=== PATIENT | female | born 1940 | race Caucasian/White ===

== ENCOUNTER 2017-01-20 19:42 | Emergency (ER) | payer BC ==
[2017-01-20] MEDS ORDERED: ACETAMINOPHEN 500 MG TABLET PO ONE (20:06)
--- NOTE | 2017-01-20 20:11 | Emergency Department Record ---
History of Present Illness - General Chief Complaint: Difficulty Breathing Stated Complaint: LATONYA Time Seen by Provider: 01/20/17 20:05 Source: Patient Mode of Arrival: Wheelchair Limitations: No limitations - History of Present Illness Initial Comments: 76 yo female presents to ED with a CC of cough, congestion, and chest pain symptoms that began 1 hours ago associated with chills. Patient reports cough symptoms for the past 8 weeks, however reports that her symptoms worsened tonight. Patient also reports a history of PE "years ago", unknown cause, but does not take anticoagulation at home. MD Complaint: Chest pain, Cough Onset/Timin -: Hour(s) Severity: Mild Quality: Other Consistency: Constant Improves With: Nothing Worsens With: Nothing Known History Of: Other Associated Symptoms: Cough, Other Treatments Prior to Arrival: None - Related Data Home Medications Medication Instructions Recorded Confirmed Last Taken Acetaminophen [Mapap] 500 mg PO NOW PRN 01/20/17 01/20/17 Unknown Allopurinol [Zyloprim] 100 mg PO DAILY 01/20/17 01/20/17 Unknown Alpha Lipoic Acid 600 mg PO QHS 01/20/17 01/20/17 Unknown Bisacodyl [Dulcolax] 5 mg PO BID 01/20/17 01/20/17 Unknown Bumetanide [Bumex] 1 mg PO QID 01/20/17 01/20/17 Unknown Citalopram Hydrobromide 20 mg PO DAILY 01/20/17 01/20/17 Unknown [Citalopram HBr] Famotidine [Pepcid] 20 mg PO BID 01/20/17 01/20/17 Unknown Fluticasone/Salmeterol 100/50 1 disk IH ASDIR 01/20/17 01/20/17 Unknown [Advair 100/50] Ipratropium/Albuterol [Duoneb] 3 ml IH NOW 01/20/17 01/20/17 Unknown Metoprolol Succinate [Toprol Xl] 50 mg PO DAILY 01/20/17 01/20/17 Unknown Mirabegron [Myrbetriq] 25 mg PO DAILY 01/20/17 01/20/17 Unknown Montelukast Sodium [Singulair] 10 mg PO QHS 01/20/17 01/20/17 Unknown Multivitamin [Multi-Vitamin Daily] 1 each PO DAILY 01/20/17 01/20/17 Unknown Potassium Chloride [Klor-Con] 20 meq PO DAILY 01/20/17 01/20/17 Unknown Ropinirole HCl [Requip] 1 mg PO QPM 01/20/17 01/20/17 Unknown Ropinirole HCl [Requip] 2 mg PO QAM 01/20/17 01/20/17 Unknown Ropinirole HCl [Requip] 2 mg PO QHS 01/20/17 01/20/17 Unknown Temazepam [Restoril] 15 mg PO QHS 01/20/17 01/20/17 Unknown Tiotropium [place] [Spiriva] 18 mcg IH DAILY 01/20/17 01/20/17 Unknown Allergies Allergy/AdvReac Type Severity Reaction Status Date / Time codeine [CODEINE] Allergy Severe Difficulty Verified 10/17/16 10:56 in breathing, RASH azithromycin [From ZITHROMAX] Allergy Mild RASH Verified 10/17/16 10:56 losartan potassium Allergy Mild RASH Verified 10/17/16 10:56 [From Cozaar] Penicillins [PENICILLINS] Allergy Mild RASH Verified 10/17/16 10:56 piroxicam [From FELDENE] Allergy Mild RASH Verified 10/17/16 10:56 tramadol HCl [From Ultram] Allergy Mild RASH Verified 10/17/16 10:56 ibuprofen [From MOTRIN] AdvReac Mild irritates Verified 10/17/16 10:56 ulcers zolpidem tartrate AdvReac Mild sleep walk Verified 10/17/16 10:56 [From AMBIEN] aspirin AdvReac Unknown unknown Verified 10/17/16 10:56 Travel Screening - Travel/Exposure Within Last 30 Days Have you traveled within the last 30 days?: No - Travel/Exposure Within Last Year Have you traveled outside the [place] in the last year?: No - Additonal Travel Details Have you been exposed to anyone with a communicable illness?: No - Travel Symptoms Symptom Screening: None Review of Systems Constitutional: Reports: Chills. Denies: Malaise, Night sweats Eyes: Denies: Eye discharge, Eye pain ENT: Reports: Congestion. Denies: Ear pain, Epistaxis Respiratory: Reports: Cough. Denies: Dyspnea Cardiovascular: Reports: Chest pain. Denies: Dyspnea on exertion, Palpitations Endocrine: Denies: Fatigue, Heat or cold intolerance Gastrointestinal: Denies: Abdominal pain, Nausea, Vomiting Genitourinary: Denies: Dysuria, Frequency Musculoskeletal: Denies: Arthralgia, Back pain, Gout, Joint swelling Skin: Denies: Bruising, Change in color Neurological: Denies: Abnormal gait, Confusion, Headache, Seizure Psychiatric: Denies: Anxiety Hematological/Lymphatic: Denies: Anemia, Blood Clots Past Medical History - SOCIAL HISTORY Smoking Status: Former smoker Alcohol Use: None Drug Use: None - RESPIRATORY Hx Respiratory Disorders: Yes Hx Asthma: Yes Hx Bronchitis: Yes (12/10/15) Hx COPD: Yes (unsure) Hx Pneumonia: Yes (09/2014) Hx Pulmonary Embolism: Yes (2013) Hx Sleep Apnea: Yes Hx of CPAP: Yes - CARDIOVASCULAR Hx Cardio Disorders: Yes Hx Cardiac Cath: Yes (2013) Hx CHF: Yes Hx Edema: Yes (occasional) 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) Hx Hypertension: Yes - NEURO Hx Neuro Disorders: Yes Hx Neuropathy: Yes (bottoms of feet) 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, blood clot behind it, was getting injections q month) - GI Hx GI Disorders: Yes Hx Abdominal Pain: Yes Hx Reflux: Yes Hx Hiatal Hernia: Yes (repaired) Hx Nausea/Vomiting: Yes Hx Rectal Bleeding: (n/a) Hx Ulcer: Yes Hx Wt Loss/Wt Gain: Yes (fluctuates) Comment:: constipation/diarrhea, hx of colon cancer - Hx Genitourinary Disorders: Yes Hx Bladder Problem: Yes (incont.) - ENDOCRINE Hx Endocrine Disorders: No - MUSCULOSKELETAL Hx Musculoskeletal Disorders: Yes Hx Arthritis: Yes Hx Fibromyalgia: Yes Hx Gout: Yes (bilateral great toes) - PSYCH Hx Psych Problems: No - HEMATOLOGY/ONCOLOGY Hx Hematology/Oncology Disorders: Yes Hx Anemia: Yes Hx Bruising: Yes Hx Cancer: Yes (Colon 2013) Hx Chemotherapy: Yes (oral last was 2014) Family Medical History Any Significant Family History?: Yes Hx Cancer: Mother *Cancer Comment: breast Hx Diabetes: Grandparents Hx Heart Disease: Grandparents Hx HTN: Father, Mother Physical Exam - General General Appearance: Alert, Oriented x3, Cooperative, Mild distress, Other ( appears to have rigors/chills on examination) Limitations: No limitations - Head Head exam: Atraumatic, Normocephalic, Normal inspection Head exam detail: negative: Abrasion, Contusion, Contreras's sign, General tenderness, Hematoma, Laceration - Eye Eye exam: Normal appearance. negative: Conjunctival injection, Periorbital swelling, Periorbital tenderness, Scleral icterus - ENT Ear exam: negative: Auricular hematoma, Auricular trauma Nasal Exam: negative: Active bleeding, Discharge, Dried blood, Foreign body Mouth exam: negative: Drooling, Laceration, Muffled voice, Tongue elevation - Neck Neck exam: Normal inspection. negative: Meningismus, Tenderness - Respiratory Respiratory exam: Normal lung sounds bilaterally. negative: Rales, Respiratory distress, Rhonchi, Stridor - Cardiovascular Cardiovascular Exam: Regular rate, Normal rhythm, Normal heart sounds - GI/Abdominal GI/Abdominal exam: Soft. negative: Rebound, Rigid, Tenderness - Rectal Rectal exam: Deferred - exam: Deferred - Extremities Extremities exam: Normal inspection. negative: Calf tenderness, Pedal edema, Tenderness - Back Back exam: Denies: CVA tenderness (R), CVA tenderness (L) - Neurological Neurological exam: Alert, Oriented X3 - Psychiatric Psychiatric exam: Anxious, Normal mood - Skin Skin exam: Normal color. negative: Abrasion Type of lesion: negative: abrasion Course Vital Signs 01/20/17 19:49 Temperature 98.6 F Pulse Rate 90 Respiratory 20 Rate Blood Pressure 111/85 Pulse Ox 96 - Reevaluation(s) Reevaluation #1: 01/20/17 20:58 EKG: NSR 83 Normal axis, normal intervals No acute ST-T wave changes present CXR: Post-operative sternaotomy changes, breast implants, nothing acute. 01/20/17 20:59 Reevaluation #2: 01/20/17 21:02 Labs reviewed, Chemistry pending, D-dimer elevated (1.38), CXR and influenza are both negative on examination. Will discuss transfer to [facility] for nuclear medicine scan imaging to exclude PE as the etiology of the patient's sudden onset LATONYA tonight. Reevaluation #3: 01/20/17 21:08 Case was discussed with Dr. Meadows, will accept transfer for Nuclear Medicine imaging. Medical Decision Making - Lab Data Result diagrams: 01/20/17 20:20 01/20/17 20:20 Disposition Disposition: Transfer Clinical Impression: Difficulty breathing Chest pain Qualifiers: Chest pain type: unspecified Qualified Code(s): R07.9 - Chest pain, unspecified Disposition: Acute Care Hospital Transfer Transfer To: [facility] Reason For Transfer: elevated D-dimer, allergic to IV contrast dye Accepting Physician: Abdiel Time Discussed w/Accepting Physician: 21:08 Condition: (2) Stable Forms: Patient Portal Access Time of Disposition: 21:08
[2017-01-20] MEDS ORDERED: 0.9 % SODIUM CHLORIDE 1000ML 1,000 ML IV SCH (20:15)
[2017-01-20 20:40] LABS: BASO % 0.2 % (0-6); EOS % 0.8 % (0-6); GRAN % 76.3 % (47-80); HEMATOCRIT 36.5 % (35.0-47.0); HEMOGLOBIN 12.1 gm/dl (11.6-16.0); LYMPH % 13.2 % (16-45); MEAN CELL VOLUME 93.4 fl (81-97); MEAN CORPUSCULAR HEMOGLOBIN 30.9 pg (27-33); MEAN CORPUSCULAR HGB CONC 33.2 g/dl (32-36); MEAN PLATELET VOLUME 10.1 fl (7.4-10.4); MONO % 9.5 % (0-9); PLATELET COUNT 279 K/uL (130-400); RED BLOOD COUNT 3.91 M/uL (3.80-5.40); RED CELL DISTRIBUTION WIDTH 14.9 % (11.5-14.5); WHITE BLOOD COUNT W/O DIFF 9.7 K/uL (4.2-12.2)
[2017-01-20 20:55] LABS: INFLUENZA A NEGATIVE (NEGATIVE); INFLUENZA B NEGATIVE (NEGATIVE)
[2017-01-20 21:27] LABS: ALB/GLOB RATIO 1.5 (1.1-1.8); ALBUMIN 4.5 gm/dL (3.5-5.0); BILIRUBIN,TOTAL 0.4 mg/dL (0.2-1.3); CREATININE 1.7 mg/dL (0.52-1.04); TOTAL PROTEIN 7.6 gm/dL (6.3-8.2)
== END 2017-01-20 21:42 | disposition short-term general hospital (02) ==
LOC: ER 19:42
DX: R07.9 Chest pain, unspecified (principal); R06.00 Dyspnea, unspecified; R05 Cough; I10 Essential (primary) hypertension; I25.2 Old myocardial infarction; Z87.891 Personal history of nicotine dependence
CPT/HCPCS: 71020; 80053; 83690; 85025; 85379; 87400; 93005; 93010; 99285; J7030